=== PATIENT | female | born 1990 | race African-American/Black ===

== ENCOUNTER 2018-11-24 16:04 | Emergency (ER) | payer SELFPAY ==
--- NOTE | 2018-11-24 16:07 | ED Physician Documentation ---
Chest Pain - HISTORIAN Historian: patient - HPI Stated Complaint: chest pain /epigastric pain Chief Complaint: General Adult Onset: minutes (36) Timing: sudden onset Duration: constant, other (she states actually better ) Last known Well Date: 11/24/18 Last Known Well Time: 14:00 Context: other (after eating [employer] ) Severity: moderate Quality: burning Chest Pain Radiation: other (right arm ) Worsened By: nothing - ROS CONST: none EYES/ENT: none SKIN/ENDO: none NEURO/PSYCH: none - PAST HX NH risk factors: no pertinent history Allergies/Adverse Reactions: Allergies Allergy/AdvReac Type Severity Reaction Status Date / Time No Known Allergies Allergy Verified 11/24/18 16:30 Home Medications: Ambulatory Orders Medication Instructions Recorded NK 11/24/18 - SOCIAL HX Smoking History: non-smoker Alcohol Use: none Drug Use: none - FAMILY HX Family HX: none - VITAL SIGNS Vital Signs: Vital Signs Temp Pulse Resp BP Pulse Ox 157/109 11/06/18 23:00 - REVIEWED ASSESSMENTS Nursing Assessment Reviewed: Yes Vitals Reviewed: Yes Progress - Progress Progress: 1640: she states pain has resolved "maybe a 2or 3" . Denies any complaints. will await all other results DG 1742: Discussed results with pt and friend. Plan discussed she is agreeable DG ED Results Lab/Radiology - Radiology Radiology Impressions: Examination: Portable chest History: Evaluate lungs. EPIGASTRIC/CHEST PAIN TODAY Comparison exam: None provided. Findings: Single view of the chest demonstrates a normal cardiac and mediastinal silhouette. Lung granger without focal infiltrate. No blunting of the costophrenic margins. Osseous structures are appropriate for age. Impression: No acute pulmonary process. Electronically signed on Nov 24, 2018 4:42:01 PM BUSINESS ANALYST PROJECT MANAGER by: Wilian Hernandez Chest Pain Physical Exam - EXAM General Appearance: no acute distress, alert, mild distress, anxious EENT: eye inspection normal, ENT inspection normal, no signs of dehydration Neck: nml inspection Respiratory: no resp. distress, chest non-tender, nml breath sounds CVS: reg. rate & rhythm, no murmur Abdomen: soft, normal bowel sounds, no distension, other (pain with palpation to epigastric area ) Skin: warm/dry Extremities: non-tender Neuro: oriented X3 Discharge Clincal Impression: Reflux esophagitis Referrals: Primary Doctor,No [Primary Care Provider] - 2 Days Comments: 1. Zantac 150 mg take 1 by mouth twice per day 2. Follow up with PCP in 2-4 days 3. Avoid spicy foods 4. Return to ER for any concerns Disposition: HOME, SELF-CARE Decision to Admit: NO Date of Decison to Admit: 11/24/18 Decision Time: 17:45
[2018-11-24] MEDS ORDERED: MAG HYDROX/ALUMINUM HYD/SIMETH 30 ML, Lidocaine 2%Visc 15ml 20 MG PO ONE ×2 (16:19)
[2018-11-24] MEDS ORDERED: 0.9 % SODIUM CHLORIDE 1,000 ML IV ONE (16:19)
[2018-11-24] MEDS ORDERED: MAGNESIUM HYDROXIDE 2,400 MG/30 ML UDC PO ONE (16:34)
--- NOTE | 2018-11-24 17:03 | Diagnostic Imaging Report ---
SARY HURLEY [facility] [address] [facility] [address] [place], [place]. [address] Report Submission Date: Nov 24, 2018 4:42:01 PM SOILED LINEN DISTRIBUTOR Patient Study Name: BERNARDO ESCALANTE Date: Nov 24, 2018 4:25:56 PM SOILED LINEN DISTRIBUTOR Modality Type: DX Gender: F Description: CHEST 1VIEW : 89 Institution: [facility] Physician: SARY HURLEY Examination: Portable chest History: Evaluate lungs. EPIGASTRIC/CHEST PAIN TODAY Comparison exam: None provided. Findings: Single view of the chest demonstrates a normal cardiac and mediastinal silhouette. Lung granger without focal infiltrate. No blunting of the costophrenic margins. Osseous structures are appropriate for age. Impression: No acute pulmonary process. Electronically signed on Nov 24, 2018 4:42:01 PM SOILED LINEN DISTRIBUTOR by: Wilian HERNANDEZ
[2018-11-24 17:32] LABS: eGFR (Non-African) > 60
[2018-11-24 17:38] LABS: BASOPHILS % 1.1 (0.0-1.5); EOSINOPHILS % 2.1 % (0.0-6.8); MEAN CORPUSCULAR HEMOGLOBIN 28.8 pg (28.0-34.0); MONOCYTES % 3.2 % (0.0-11.0); NEUTROPHILS # 6.1 # k/uL (1.4-7.7)
[2018-11-24 17:58] VITALS: BP 134/82
== END 2018-11-24 17:56 | disposition home or self-care (01) ==
LOC: ED 16:04
DX: K21.0 Gastro-esophageal reflux disease with esophagitis (principal)
CPT/HCPCS: 36415; 71045; 80053; 84484; 85025; 93005; 99283; 99284; A9270; J7030; S1016